=== PATIENT | female | born 1970 | race Caucasian/White ===

== ENCOUNTER 2022-04-21 05:39 | Emergency (ER) | payer OTHER ==
[~2022-04-21 05:39] MED LIST: ANTIVERT 25MG T25 MG PO
[2022-04-21] MEDS ORDERED: PERCOCET 5/325 T1 EA PO (07:13)
== END 2022-04-21 07:50 | disposition home or self-care (01) ==
LOC: ER1 05:39
DX: S52.92XA Unspecified fracture of left forearm, initial encounter for closed fracture (principal); S52.202A Unspecified fracture of shaft of left ulna, initial encounter for closed fracture; I10 Essential (primary) hypertension; Z79.899 Other long term (current) drug therapy; W18.2XXA Fall in (into) shower or empty bathtub, initial encounter; Y93.E8 Activity, other personal hygiene
CPT/HCPCS: 25560; 73110; 96374; 96375; 99152; 99283; J2270; J2405; J2704